=== PATIENT | female | born 1955 | race Hispanic/Latino ===

== ENCOUNTER 2018-07-11 01:17 | Observation (INO) | payer MEDICARE ==
[2018-07-11] MEDS ORDERED: ZOFRAN IV ONE (01:58)
[2018-07-11] MEDS ORDERED: NACL 0.9% 1000 ML 1,000 ML IV ONE ×2 (01:58→05:12)
[2018-07-11] MEDS ORDERED: DILAUDID IV ONE ×3 (01:58→05:12)
[2018-07-11] MEDS ORDERED: DILAUDID ONE (02:01)
[2018-07-11] MEDS ORDERED: ZOFRAN ONE (02:02)
[2018-07-11 02:27] LABS: Basophils # (Auto) 0.1 K/mm3 (0.0-0.1); Eosinophils # (Auto) 0.1 K/mm3 (0.0-0.4); Eosinophils % (Auto) 0.9 % (0.0-4.3); Hematocrit 39.9 % (30.3-42.9); Hemoglobin 13.6 gm/dl (10.1-14.3); Lymphocytes # (Auto) 2.7 K/mm3 (1.2-5.4); Lymphocytes % (Auto) 27.6 % (13.4-35.0); Mean Corpuscular HGB Conc 34 % (30-34); Mean Corpuscular Volume 98 fl (79-97); Monocytes # (Auto) 0.7 K/mm3 (0.0-0.8); Monocytes % (Auto) 7.2 % (0.0-7.3); Platelet Count 296 K/mm3 (140-440); Red Blood Count 4.07 M/mm3 (3.65-5.03); Red Cell Distribution Width 14.7 % (13.2-15.2)
[2018-07-11 02:45] LABS: Alanine Aminotransferase 5 units/L (7-56); Albumin 3.7 g/dL (3.9-5); BUN/Creatinine Ratio 20; Blood Urea Nitrogen 12 mg/dL (7-17); Calcium 8.9 mg/dL (8.4-10.2); Hemolysis Index 7
--- NOTE | 2018-07-11 02:50 | Emergency Department Report ---
ED Abdominal Pain HPI - General Chief Complaint: Abdominal Pain Stated Complaint: ABD PAIN Time Seen by Provider: 07/11/18 01:54 Source: patient, EMS Mode of arrival: Stretcher Limitations: No Limitations - History of Present Illness Initial Comments: 62-year-old female with a past medical history of asthma, COPD, cholecystectomy, chronic pain, and previous back surgery presents to the Hospital complains of left upper quadrant pain for the past 2-3 days. Pain is constant but fluctuates in intensity and is currently 10/10 in intensity. Rest of palpation. No relieving factors. She denies vomiting, fever, hematuria, or dysuria. + nausea and watery stools for the past 3 days. No melena or hematochezia reported. Severity scale (0 -10): 10 - Related Data Previous Rx's Medication Instructions Recorded Last Taken Type ALBUTEROL Inhaler (OR & NICU) 2 puff IH QID PRN #1 inhalation 11/24/17 Unknown Rx [ProAir HFA Inhaler] Prednisone [predniSONE 10 mg 10 mg PO .TAPER #1 tab.ds.pk 11/24/17 Unknown Rx (6-Day Pack, 21 Tabs)] guaiFENesin DM [Guaifenesin Dm 10 ml PO Q4H PRN 10 Days oral.liqd 11/24/17 Unknown Rx Syrup] levoFLOXacin [Levaquin TAB] 500 mg PO QDAY #5 tablet 11/24/17 Unknown Rx Allergies Allergy/AdvReac Type Severity Reaction Status Date / Time Penicillins Allergy Swelling Verified 11/22/17 04:54 ED Review of Systems ROS: Stated complaint: ABD PAIN Other details as noted in HPI Comment: All other systems reviewed and negative ED Past Medical Hx - Past Medical History Previous Medical History?: Yes Hx Congestive Heart Failure: No Hx Diabetes: No Hx Asthma: No Hx COPD: Yes Additional medical history: chronic back pain - Surgical History Past Surgical History?: Yes Hx Cholecystectomy: Yes Additional Surgical History: back surgery - Social History Smoking Status: Never Smoker Substance Use Type: None - Medications Home Medications: Home Medications Medication Instructions Recorded Confirmed Last Taken Type ALBUTEROL Inhaler (OR & NICU) 2 puff IH QID PRN #1 inhalation 11/24/17 Unknown Rx [ProAir HFA Inhaler] Prednisone [predniSONE 10 mg 10 mg PO .TAPER #1 tab.ds.pk 11/24/17 Unknown Rx (6-Day Pack, 21 Tabs)] guaiFENesin DM [Guaifenesin Dm 10 ml PO Q4H PRN 10 Days oral.liqd 11/24/17 Unknown Rx Syrup] levoFLOXacin [Levaquin TAB] 500 mg PO QDAY #5 tablet 11/24/17 Unknown Rx ED Physical Exam - General Limitations: No Limitations - Other Other exam information: General: Uncomfortable secondary to pain Head exam: Atraumatic, normocephalic Eyes exam: Normal appearance, nonicteric sclera ENT: Moist mucous membrane, normal oropharynx Neck exam: Normal inspection, full range of motion, no meningismus nontender Respiratory exam: Clear to auscultation bilateral, no wheezes, rales, crackles Cardiovascular: Normal rate and rhythm, normal heart sounds Abdomen: Soft, nondistended, left upper quadrant tenderness,with normal bowel sounds, no rebound, or guarding Extremity: Full range of motion normal inspection no deformity Back: Normal Inspection, full range of motion, no tenderness Neurologic: Alert, oriented x3, cranial nerves intact, no motor or sensory deficit Psychiatric: normal affect, normal mood Skin: Warm, dry, intact ED Course Vital Signs 07/11/18 07/11/18 07/11/18 01:27 01:32 01:46 Temperature 97.6 F Pulse Rate 75 Respiratory 20 20 Rate Blood Pressure 106/64 116/81 O2 Sat by Pulse 97 97 97 Oximetry 07/11/18 07/11/18 07/11/18 02:00 02:20 02:41 Temperature Pulse Rate Respiratory Rate Blood Pressure 116/81 113/79 98/63 O2 Sat by Pulse 97 96 93 Oximetry 07/11/18 07/11/18 07/11/18 03:00 03:38 03:41 Temperature Pulse Rate Respiratory Rate Blood Pressure 98/63 98/63 98/63 O2 Sat by Pulse 97 95 Oximetry 07/11/18 07/11/18 07/11/18 04:01 04:21 04:41 Temperature Pulse Rate Respiratory Rate Blood Pressure 109/65 109/65 97/50 O2 Sat by Pulse 94 93 92 Oximetry 07/11/18 05:00 Temperature Pulse Rate Respiratory Rate Blood Pressure 97/50 O2 Sat by Pulse 97 Oximetry - Consultations Consultation #1: 07/11/18 05:15 case d/w DR NEHA SEVERINO, will consult for endoscopy, request NPO ED Medical Decision Making - Lab Data Result diagrams: 07/11/18 02:13 07/11/18 02:13 Lab Results 07/11/18 07/11/18 07/11/18 Range/Units 02:13 02:13 03:11 WBC 9.9 (4.5-11.0) K/mm3 RBC 4.07 (3.65-5.03) M/mm3 Hgb 13.6 (10.1-14.3) gm/dl Hct 39.9 (30.3-42.9) % MCV 98 H (79-97) fl MCH 33 H (28-32) pg MCHC 34 (30-34) % RDW 14.7 (13.2-15.2) % Plt Count 296 (140-440) K/mm3 Lymph % (Auto) 27.6 (13.4-35.0) % [place] % (Auto) 7.2 (0.0-7.3) % Eos % (Auto) 0.9 (0.0-4.3) % Baso % (Auto) 1.0 (0.0-1.8) % Lymph # 2.7 (1.2-5.4) K/mm3 [place] # 0.7 (0.0-0.8) K/mm3 Eos # 0.1 (0.0-0.4) K/mm3 Baso # 0.1 (0.0-0.1) K/mm3 Seg Neutrophils % 63.3 (40.0-70.0) % Seg Neutrophils # 6.3 (1.8-7.7) K/mm3 Sodium 141 (137-145) mmol/L Potassium 3.8 (3.6-5.0) mmol/L Chloride 105.8 (98-107) mmol/L Carbon Dioxide 21 L (22-30) mmol/L Anion Gap 18 mmol/L BUN 12 (7-17) mg/dL Creatinine 0.6 L (0.7-1.2) mg/dL Estimated GFR > 60 ml/min BUN/Creatinine Ratio 20 % Glucose 104 H (65-100) mg/dL Calcium 8.9 (8.4-10.2) mg/dL Total Bilirubin 0.20 (0.1-1.2) mg/dL AST 12 (5-40) units/L ALT 5 L (7-56) units/L Alkaline Phosphatase 76 (35-129) units/L Total Protein 6.8 (6.3-8.2) g/dL Albumin 3.7 L (3.9-5) g/dL Albumin/Globulin Ratio 1.2 % Lipase 21 (13-60) units/L Urine Color Yellow (Yellow) Urine Turbidity Clear (Clear) Urine pH 5.0 (5.0-7.0) Ur Specific [place] 1.039 H (1.003-1.030) Urine Protein <15 mg/dl (Negative) mg/dL Urine Glucose (UA) Neg (Negative) mg/dL Urine Ketones Tr (Negative) mg/dL Urine Blood Sm (Negative) Urine Nitrite Neg (Negative) Urine Bilirubin Neg (Negative) Urine Urobilinogen 2.0 (<2.0) mg/dL Ur Leukocyte Esterase Neg (Negative) Urine WBC (Auto) 1.0 (0.0-6.0) /HPF Urine RBC (Auto) 15.0 (0.0-6.0) /HPF U Epithel Cells (Auto) 4.0 (0-13.0) /HPF Calcium Oxalate Crystal 1+ Urine Mucus 2+ /HPF - Radiology Data Radiology results: report reviewed PROCEDURE: CT ABDOMEN PELVIS W CON TECHNIQUE: CT imaging is obtained through the abdomen and pelvis following intravenous administration of contrast in arterial and delayed phases. HISTORY: LUQ abd pain COMPARISONS: 11/22/2017 FINDINGS: Partially visualized intrathoracic contents are remarkable for a small hiatal hernia. Cholecystectomy. The liver, pancreas, spleen, and adrenal glands are unremarkable. Kidneys show no worrisome lesions, hydronephrosis, or calculi. Urinary bladder is unremarkable. Anteverted uterus. No free fluid in the pelvis. Small and large bowel are normal in caliber. Appendix is normal. No free air, free fluid, or lymphadenopathy identified. Aorta is normal in course and caliber. Superficial soft tissues are unremarkable. No acute or aggressive appearing skeletal findings. Laminectomy, posterior discectomy and fusion at L4-L5 with mild anterolisthesis appears unchanged from prior. Hardware appears intact. IMPRESSION: No acute findings in the abdomen or pelvis. Small hiatal hernia. - Medical Decision Making Persistent left upper quadrant pain with CT only showing a small hiatal hernia. Microscopic hematuria and calcium oxalate crystals without finding of stone on CT. Patient continues to look uncomfortable with intermittent pain with the medication wears off. Case discussed with GI decision analyst with plan for endoscopy. Patient has not had anything by mouth since midnight. Nothing by mouth order place. PPI IV dose times one ordered. Hospitalist for informed for admission - Differential Diagnosis perforated ulcer, pancreatitis, diverticulitis, biliary colic, UTI Critical Care Time: No Critical care attestation.: If time is entered above; I have spent that time in minutes in the direct care of this critically ill patient, excluding procedure time. ED Disposition Clinical Impression: LUQ abdominal pain, Intractable abdominal pain, Diarrhea Disposition: OP ADMIT IP TO THIS HOSP Is pt being admited?: Yes Condition: Stable Time of Disposition: 05:17 (DR disla/hosp)
[2018-07-11 03:35] LABS: Bilirubin,Urine NEG (Negative); Blood,Urine SM (Negative); Calcium Oxalate Crystals,Urine 1+; Color,Urine Yellow (Yellow); Mucus,Urine 2+ /HPF; Protein,Urine <15 mg/dL mg/dL (Negative)
--- NOTE | 2018-07-11 04:54 | Cat Scan Report ---
PROCEDURE: CT ABDOMEN PELVIS W CON TECHNIQUE: CT imaging is obtained through the abdomen and pelvis following intravenous administratio n of contrast in arterial and delayed phases. HISTORY: LUQ abd pain COMPARISONS: 11/22/2017 FINDINGS: Partially visualized intrathoracic contents are remarkable for a small hiatal hernia. Cholecystectomy. The liver, pancreas, spleen, and adrenal glands are unremarkable. Kidneys show no worrisome lesions, hydronephrosis, or calculi. Urinary bladder is unremarkable. Antev erted uterus. No free fluid in the pelvis. Small and large bowel are normal in caliber. Appendix is normal. No free air, free fluid, or lymphade nopathy identified. Aorta is normal in course and caliber. Superficial soft tissues are unremarkable. No acute or aggressive appearing skeletal findings. Lázaro ctomy, posterior discectomy and fusion at L4-L5 with mild anterolisthesis appears unchanged from prio r. Hardware appears intact. IMPRESSION: No acute findings in the abdomen or pelvis. Small hiatal hernia. This document is electronically signed by Madi Gan MD., July 11 2018 04:52:09 AM ET
[2018-07-11] MEDS ORDERED: PROTONIX IV ONE (05:10)
[2018-07-11] MEDS ORDERED: TYLENOL PO PRN ×3 (05:25→06:03)
[2018-07-11] MEDS ORDERED: ZOFRAN IV PRN ×3 (05:25→06:03)
[2018-07-11] MEDS ORDERED: SODIUM CHLORIDE FLUSH SYRINGE 10 ML IV PRN (05:32)
--- NOTE | 2018-07-11 05:35 | History and Physical Report ---
History of Present Illness Date of examination: 07/11/18 Date of admission: 07/11/2018 Chief complaint: Abdomen or pain History of present illness: Patient is a 62-year-old female with a PMHx of COPD/asthma, hyperlipidemia, osteoarthritis, chronic pain, back surgery in March who presents today to ER with complaints of left upper quadrant abdominal pain 2-3 days. Pt states the pain is intermittent and associated with diarrhea, it is an intensity of 10/10 she, she reports some nausea, denied recent traveling, denies any vomiting, denies fever, denies chills. Patient states that she woke up in the middle of the night with severe abdominal pain which prompted her to come to the ER tonight, she states that she has an appointment to see a GI on Sunday next week. Patient had a CT scan of the abdomen in the ER which was negative, all laboratory test were negative including lipase, liver enzymes, WBC, GI is consulted for possible endoscopy in the morning, pt is admitted for further evaluation of her abdominal pain. Past History Past Medical History: hyperlipidemia Past Surgical History: cholecystectomy, Other (lower back surgery) Social history: alcohol abuse (junk alcohol occasionally) Family history: no significant family history Medications and Allergies Allergies Allergy/AdvReac Type Severity Reaction Status Date / Time Penicillins Allergy Swelling Verified 11/22/17 04:54 Home Medications Medication Instructions Recorded Confirmed Last Taken Type Escitalopram Oxalate [Lexapro] 20 mg PO DAILY 07/11/18 07/11/18 Unknown History Levothyroxine [Synthroid] 75 mcg PO QAM 07/11/18 07/11/18 Unknown History Active Meds: Active Medications Acetaminophen (Tylenol) 650 mg PO Q4H PRN PRN Reason: Pain MILD(1-3)/Fever >100.5/MYERS Famotidine (Pepcid) 20 mg IV BID RUPALI Sodium Chloride (Nacl 0.9% 1000 Ml) 1,000 mls @ 999 mls/hr IV BOLUS ONE Stop: 07/11/18 06:12 Last Admin: 07/11/18 05:32 Dose: 999 mls/hr Documented by: Dextrose/Sodium Chloride (D5/0.45ns) 1,000 mls @ 75 mls/hr IV DIRECT RUPALI Morphine Sulfate (Morphine) 2 mg IV Q4H PRN PRN Reason: Pain, Moderate (4-6) Ondansetron HCl (Zofran) 4 mg IV Q8H PRN PRN Reason: Nausea And Vomiting Sodium Chloride (Sodium Chloride Flush Syringe 10 Ml) 10 ml IV BID RUPALI Sodium Chloride (Sodium Chloride Flush Syringe 10 Ml) 10 ml IV PRN PRN PRN Reason: LINE FLUSH Review of Systems Gastrointestinal: abdominal pain, nausea, diarrhea Exam - Constitutional Vitals: Temp Pulse Resp BP Pulse Ox 97.6 F 75 20 97/50 97 07/11/18 01:27 07/11/18 01:27 07/11/18 01:32 07/11/18 05:00 07/11/18 05:00 General appearance: Present: no acute distress - EENT Eyes: Present: EOM intact ENT: hearing intact - Neck Neck: Present: normal ROM - Respiratory Respiratory effort: normal Respiratory: bilateral: CTA - Cardiovascular Rhythm: regular - Extremities Extremities: no ischemia Peripheral Pulses: within normal limits - Abdominal General gastrointestinal: Present: soft, tender Female genitourinary: Present: deferred - Rectal Rectal Exam: deferred - Integumentary Integumentary: Present: warm, dry - Musculoskeletal Musculoskeletal: strength equal bilaterally - Psychiatric Psychiatric: cooperative - Neurologic Neurologic: moves all extremities Results - Labs CBC & Chem 7: 07/11/18 02:13 07/11/18 02:13 Labs: Laboratory Last Values WBC 9.9 K/mm3 (4.5-11.0) 07/11/18 02:13 RBC 4.07 M/mm3 (3.65-5.03) 07/11/18 02:13 Hgb 13.6 gm/dl (10.1-14.3) 07/11/18 02:13 Hct 39.9 % (30.3-42.9) 07/11/18 02:13 MCV 98 fl (79-97) H 07/11/18 02:13 MCH 33 pg (28-32) H 07/11/18 02:13 MCHC 34 % (30-34) 07/11/18 02:13 RDW 14.7 % (13.2-15.2) 07/11/18 02:13 Plt Count 296 K/mm3 (140-440) 07/11/18 02:13 Lymph % (Auto) 27.6 % (13.4-35.0) 07/11/18 02:13 [place] % (Auto) 7.2 % (0.0-7.3) 07/11/18 02:13 Eos % (Auto) 0.9 % (0.0-4.3) 07/11/18 02:13 Baso % (Auto) 1.0 % (0.0-1.8) 07/11/18 02:13 Lymph # 2.7 K/mm3 (1.2-5.4) 07/11/18 02:13 [place] # 0.7 K/mm3 (0.0-0.8) 07/11/18 02:13 Eos # 0.1 K/mm3 (0.0-0.4) 07/11/18 02:13 Baso # 0.1 K/mm3 (0.0-0.1) 07/11/18 02:13 Seg Neutrophils % 63.3 % (40.0-70.0) 07/11/18 02:13 Seg Neutrophils # 6.3 K/mm3 (1.8-7.7) 07/11/18 02:13 Sodium 141 mmol/L (137-145) 07/11/18 02:13 Potassium 3.8 mmol/L (3.6-5.0) 07/11/18 02:13 Chloride 105.8 mmol/L (98-107) 07/11/18 02:13 Carbon Dioxide 21 mmol/L (22-30) L 07/11/18 02:13 Anion Gap 18 mmol/L 07/11/18 02:13 BUN 12 mg/dL (7-17) 07/11/18 02:13 Creatinine 0.6 mg/dL (0.7-1.2) L 07/11/18 02:13 Estimated GFR > 60 ml/min 07/11/18 02:13 BUN/Creatinine Ratio 20 % 07/11/18 02:13 Glucose 104 mg/dL (65-100) H 07/11/18 02:13 Calcium 8.9 mg/dL (8.4-10.2) 07/11/18 02:13 Total Bilirubin 0.20 mg/dL (0.1-1.2) 07/11/18 02:13 AST 12 units/L (5-40) 07/11/18 02:13 ALT 5 units/L (7-56) L 07/11/18 02:13 Alkaline Phosphatase 76 units/L (35-129) 07/11/18 02:13 Total Protein 6.8 g/dL (6.3-8.2) 07/11/18 02:13 Albumin 3.7 g/dL (3.9-5) L 07/11/18 02:13 Albumin/Globulin Ratio 1.2 % 07/11/18 02:13 Lipase 21 units/L (13-60) 07/11/18 02:13 Urine Color Yellow (Yellow) 07/11/18 03:11 Urine Turbidity Clear (Clear) 07/11/18 03:11 Urine pH 5.0 (5.0-7.0) 07/11/18 03:11 Ur Specific [place] 1.039 (1.003-1.030) H 07/11/18 03:11 Urine Protein <15 mg/dl mg/dL (Negative) 07/11/18 03:11 Urine Glucose (UA) Neg mg/dL (Negative) 07/11/18 03:11 Urine Ketones Tr mg/dL (Negative) 07/11/18 03:11 Urine Blood Sm (Negative) 07/11/18 03:11 Urine Nitrite Neg (Negative) 07/11/18 03:11 Urine Bilirubin Neg (Negative) 07/11/18 03:11 Urine Urobilinogen 2.0 mg/dL (<2.0) 07/11/18 03:11 Ur Leukocyte Esterase Neg (Negative) 07/11/18 03:11 Urine WBC (Auto) 1.0 /HPF (0.0-6.0) 07/11/18 03:11 Urine RBC (Auto) 15.0 /HPF (0.0-6.0) 07/11/18 03:11 U Epithel Cells (Auto) 4.0 /HPF (0-13.0) 07/11/18 03:11 Calcium Oxalate Crystal 1+ 07/11/18 03:11 Urine Mucus 2+ /HPF 07/11/18 03:11 Assessment and Plan Assessment and plan: 1. Acute abdominal pain (etiology unknown) 2. COPD asthma (stable) 3. Acute diarrhea 4. Hyperlipidemia 5. Osteoarthritis 6. Chronic back pain (s/p lower back surgery) Plan: Patient is placed in observation for abdominal pain Consult GI for observation Keep NPO until seen by GI Continue pain control with morphine PRN DC plan per GI in a.m. Plan of care was discussed with patient, voiced understanding Patient's condition and plan of care D/W with Dr. SO Advance Directives: Yes VTE prophylaxis?: Mechanical Plan of care discussed with patient/family: No
[2018-07-11] MEDS ORDERED: D5/0.45NS 1,000 ML IV SCH (06:00)
[2018-07-11] MEDS: MORPHINE IV PRN ×3 (06:35→20:01)
--- NOTE | 2018-07-11 08:30 | Gastroenterology Consultation ---
History of Present Illness - Reason for Consult Consult date: 07/11/18 abdominal pain Requesting physician: ADELFO JMAIL - History of Present Illness This is a 62 yo female with pmh of COPD/asthma, HLD, osteoarthritis, chronic pain, back surgery in 03/2019 presenting to the ED for LUQ abdominal pain since last weekend. She reports that the pain is severe intermittent. No association with eating or nausea/vomiting. She does have diarrhea during this time. No fever/chills. No change in medication other than vitamin D. In the ED, labs were unremarkable and CT abdomen did not show any cause for her pain. No prior EGD. No NSAID use. Past History Past Medical History: hyperlipidemia Past Surgical History: cholecystectomy, Other (lower back surgery) Social history: alcohol abuse (junk alcohol occasionally) Family history: no significant family history Medications and Allergies Allergies Allergy/AdvReac Type Severity Reaction Status Date / Time Penicillins Allergy Swelling Verified 11/22/17 04:54 Home Medications Medication Instructions Recorded Confirmed Last Taken Type Escitalopram Oxalate [Lexapro] 20 mg PO DAILY 07/11/18 07/11/18 Unknown History Levothyroxine [Synthroid] 75 mcg PO QAM 07/11/18 07/11/18 Unknown History Active Meds: Active Medications Acetaminophen (Tylenol) 650 mg PO Q4H PRN PRN Reason: Pain MILD(1-3)/Fever >100.5/MYERS Famotidine (Pepcid) 20 mg IV BID RUPALI Dextrose/Sodium Chloride (D5/0.45ns) 1,000 mls @ 75 mls/hr IV DIRECT RUPALI Morphine Sulfate (Morphine) 2 mg IV Q4H PRN PRN Reason: Pain, Moderate (4-6) Last Admin: 07/11/18 06:35 Dose: 2 mg Documented by: Ondansetron HCl (Zofran) 4 mg IV Q8H PRN PRN Reason: Nausea And Vomiting Sodium Chloride (Sodium Chloride Flush Syringe 10 Ml) 10 ml IV BID RUPALI Sodium Chloride (Sodium Chloride Flush Syringe 10 Ml) 10 ml IV PRN PRN PRN Reason: LINE FLUSH Review of Systems - Review of Systems All systems: negative Constitutional: no weight loss, no weight gain Cardiovascular: no chest pain, no shortness of breath Respiratory: cough Gastrointestinal: abdominal pain, diarrhea, no nausea, no vomiting, no BRBPR, no melena Musculoskeletal: joint pain, muscle pain Hematologic/Lymphatic: no easy bruising Allergic/Immunologic: no wheezing Exam - Constitutional Vital Signs: Temp Pulse Resp BP Pulse Ox 97.8 F 66 16 93/51 96 07/11/18 07:12 07/11/18 07:12 07/11/18 07:12 07/11/18 07:12 07/11/18 07:12 General appearance: no acute distress, well-nourished - EENT Eyes: PERRL ENT: hearing intact, clear oral mucosa, dentition normal - Neck Neck: supple, normal ROM, no masses or JVD - Respiratory Respiratory effort: normal Respiratory: bilateral: CTA - Breasts Breasts: deferred - Cardiovascular Rhythm: regular Heart Sounds: Present: S1 & S2. Absent: gallop, rub Extremities: pulses intact, No edema, normal color, Full ROM - Gastrointestinal General gastrointestinal: Present: soft, tender, non-distended, normal bowel sounds - Integumentary Integumentary: Present: clear, warm, dry - Neurologic Neurological: alert and oriented x3 - Psychiatric Psychiatric: appropriate mood/affect, intact judgment & insight, memory intact - Labs CBC & Chem 7: 07/11/18 02:13 07/11/18 02:13 Lab Results: Laboratory Results - last 24 hr 07/11/18 07/11/18 07/11/18 02:13 02:13 03:11 WBC 9.9 RBC 4.07 Hgb 13.6 Hct 39.9 MCV 98 H MCH 33 H MCHC 34 RDW 14.7 Plt Count 296 Lymph % (Auto) 27.6 [place] % (Auto) 7.2 Eos % (Auto) 0.9 Baso % (Auto) 1.0 Lymph # 2.7 [place] # 0.7 Eos # 0.1 Baso # 0.1 Seg Neutrophils % 63.3 Seg Neutrophils # 6.3 Sodium 141 Potassium 3.8 Chloride 105.8 Carbon Dioxide 21 L Anion Gap 18 BUN 12 Creatinine 0.6 L Estimated GFR > 60 BUN/Creatinine Ratio 20 Glucose 104 H Calcium 8.9 Total Bilirubin 0.20 AST 12 ALT 5 L Alkaline Phosphatase 76 Total Protein 6.8 Albumin 3.7 L Albumin/Globulin Ratio 1.2 Lipase 21 Urine Color Yellow Urine Turbidity Clear Urine pH 5.0 Ur Specific [place] 1.039 H Urine Protein <15 mg/dl Urine Glucose (UA) Neg Urine Ketones Tr Urine Blood Sm Urine Nitrite Neg Urine Bilirubin Neg Urine Urobilinogen 2.0 Ur Leukocyte Esterase Neg Urine WBC (Auto) 1.0 Urine RBC (Auto) 15.0 U Epithel Cells (Auto) 4.0 Calcium Oxalate Crystal 1+ Urine Mucus 2+ - Imaging CT Scan: report reviewed Assessment and Plan # LUQ abdominal pain - s/p cholecystectomy. - CT abdomen reviewed and unremarkable. - labs normal. lipase negative - ddx including PUD, viral illness, gastritis. Rec: - will plan for EGD today. - keep NPO - continue with PPI. - will follow. Reviewed and updated patient's current medications - Patient Problems (1) LUQ abdominal pain Current Visit: Yes Status: Acute
--- NOTE | 2018-07-11 09:15 | Event Note ---
Date: 07/11/18 1. Acute abdominal pain (etiology unknown) 2. COPD asthma (stable) 3. Acute diarrhea 4. Hyperlipidemia 5. Osteoarthritis 6. Chronic back pain (s/p lower back surgery) Evaluated by GI Patient underwent EGD Findings reviewed Patient continues to have abdominal pain Continue current management Possible discharge in 1-2 days if stable
[2018-07-11] MEDS: NACL 0.9% 1000 ML 1,000 ML IV SCH ×2 (09:33→11:43)
--- NOTE | 2018-07-11 09:49 | Anesthesia Day of Surgery ---
Anesthesia Day of Surgery - Day of Surgery Patient Examined: Yes Patient H&P Reviewed: Yes Patient is NPO: Yes
--- NOTE | 2018-07-11 09:52 | Anesthesia Consultation ---
Anesthesia Consult and Med Hx Date of service: 07/11/18 - Airway Anesthetic Teeth Evaluation: Good ROM Head & Neck: Adequate Mental/Hyoid Distance: Adequate Mallampati Class: Class II Intubation Access Assessment: Probably Good - Pre-Operative Health Status ASA Pre-Surgery Classification: ASA3 Proposed Anesthetic Plan: MAC - Pulmonary Hx Smoking: No Hx Asthma: Yes COPD: Yes Hx Pneumonia: No - Cardiovascular System Hx Coronary Artery Disease: Yes (high cholesterol) - Central Nervous System Hx Neuromuscular Disorder: Yes (osteoarthritis) Hx Back Pain: Yes (Back surgery) - Endocrine Hx End Stage Renal Disease: No - Other Systems Hx Alcohol Use: Yes
[2018-07-11] MEDS ORDERED: DIPRIVAN 10 MG/ML IV ONE (09:54)
[2018-07-11] MEDS ORDERED: SUBLIMAZE ONE (09:54)
[2018-07-11] MEDS ORDERED: VERSED ONE (09:54)
[2018-07-11] MEDS ORDERED: SODIUM CHLORIDE FLUSH SYRINGE 10 ML IV SCH ×2 (10:00)
--- NOTE | 2018-07-11 10:17 | Operative Report ---
Operative Report Operative Report: Date of procedure: 07/11/2018 Procedure: EGD with biopsies Preprocedure diagnosis: abdominal pain Post procedure diagnosis: antral gastritis, bile in the stomach, and duodenitis Endoscopist: Dr. Avilez Anesthesia: Monitored anesthesia care per anesthesia department Medications: per anesthesia records Estimated blood loss: minimal After careful discussion of the nature and purpose of the procedure as well as details the technique risks benefits and alternatives consent was obtained. The patient was placed in the left lateral decubitus position and medicated per anesthesia. The tip of the [employer] EQ 570 video scope was passed per orum under direct vision into the esophagus and advanced into the stomach and descending duodenum. The descending duodenum appeared normal. The duodenal bulb showed erythematous mucosa with edema. Biopsies were obtained. The scope was withdrawn into the stomach and the stomach then gently insufflated with air. The antrum showed mild erythematous mucosa. Biopsies were obtained. The stomach was further insufflated and the scope was then retroflexed and partially withdrawn. The cardia, fundus, and body of the stomach were within normal limits and easily distensible. Bile noted in the gastric body. The scope was then withdrawn in the forward position. The esophagogastric junction was at 40 cm. There was a small hiatal hernia. The esophageal body was normal throughout. The procedure was was well tolerated and the patient was observed in recovery. Impressions: 1. Mild duodenitis in the bulb. Bx obtained. 2. Mild antral gastritis. Bx obtained. 3. Bile noted in the stomach. 4. Otherwise, normal rest of the exam. Plan: 1. Resume diet. 2. Recommend PPI PO once daily. 3. Add sucralfate PO QID. 4. Ok for discharge per GI standpoint and follow up in outpatient clinic.
[2018-07-11] MEDS: CARAFATE PO SCH ×3 (11:39→23:00)
[2018-07-11] MEDS: PEPCID IV SCH ×2 (11:49→23:01)
[2018-07-11] MEDS: SODIUM CHLORIDE FLUSH SYRINGE 10 ML IV SCH ×2 (12:04→23:01)
[2018-07-11] MEDS ORDERED: ATIVAN ONE (13:51)
[2018-07-11] MEDS: PERCOCET 5/325 PO PRN ×2 (14:59→23:00)
[2018-07-11] MEDS: SODIUM CHLORIDE FLUSH SYRINGE 10 ML IV PRN (20:02)
[2018-07-12] MEDS: MORPHINE IV PRN ×2 (03:48→10:37)
[2018-07-12] MEDS: SODIUM CHLORIDE FLUSH SYRINGE 10 ML IV PRN (03:49)
[2018-07-12 06:02] VITALS: BP 112/57
[2018-07-12] MEDS: PERCOCET 5/325 PO PRN (06:22)
[2018-07-12] MEDS: NACL 0.9% 1000 ML 1,000 ML IV SCH (06:23)
[2018-07-12] MEDS: CARAFATE PO SCH (07:30)
[2018-07-12] MEDS ORDERED: PROTONIX PO SCH (10:00)
[2018-07-12] MEDS: PEPCID IV SCH (10:39)
--- NOTE | 2018-07-12 10:39 | Gastroenterology Progress Note ---
Assessment and Plan 1. # LUQ abdominal pain - s/p cholecystectomy. - CT abdomen reviewed and unremarkable. - labs normal. lipase negative - ddx including PUD, viral illness, gastritis. Impressions: 1. Mild duodenitis in the bulb. Bx obtained- path pending 2. Mild antral gastritis. Bx obtained- path pending. 3. Bile noted in the stomach. 4. Otherwise, normal rest of the exam. Plan: 1. Resume diet. 2. Recommend PPI PO once daily. 3. Add sucralfate PO QID. 4. Add Bentyl as needed for pain 4. Ok for discharge per GI standpoint and follow up in outpatient clinic. Subjective Date of service: 07/12/18 Interval history: Pt continues to report intermittent pain on the left side. Objective - Constitutional Vitals: Temp Pulse Resp BP Pulse Ox 98.0 F 61 20 112/57 96 07/12/18 04:29 07/12/18 04:29 07/12/18 06:22 07/12/18 04:29 07/12/18 04:29 General appearance: no acute distress - EENT Eyes: EOM intact ENT: hearing intact - Neck Neck: supple - Cardiovascular Rhythm: regular Heart Sounds: Present: S1 & S2 - Gastrointestinal General gastrointestinal: Present: soft, tender (TTP LUQ.), normal bowel sounds - Integumentary Integumentary: Present: warm, dry - Neurologic Neurological: alert and oriented x3 - Labs CBC & Chem 7: 07/11/18 02:13 07/11/18 02:13
[2018-07-12] MEDS: SODIUM CHLORIDE FLUSH SYRINGE 10 ML IV SCH (10:40)
[2018-07-12] MEDS ORDERED: BENTYL PO PRN (10:49)
--- NOTE | 2018-07-12 12:46 | Discharge Summary ---
Providers - Providers Date of Admission: 07/11/18 05:06 Date of discharge: 07/12/18 Attending physician: ALYSSA RUIZ 07/11/18 05:10 Consult to Physician [CONS] Urgent Comment: Dr. Heath spoke with Dr. Avilez @ 0513 Consulting Provider: JULIANNA AVILEZ Physician Instructions: Reason For Exam: luq pain Primary care physician: DAVID COREY MD Hospitalization Reason for admission: abdominal pain Condition: Stable Pertinent studies: CT abdomen and pelvis EGD Procedures: EGD Hospital course: 62yr old female patient with a history of COPD/asthma, hyperlipidemia, osteoarthritis, chronic pain, back surgery in March was admitted through ER with complaints of left upper quadrant abdominal pain 2-3 days. The patient was admitted symptomatically managed evaluated by GI and underwent EGD Revealed mild duodenitis and mild antral gastritis biopsied, advised PPI sucralfate However patient did not wait any longer for management and left the hospital AMA, Discharge diagnoses; Acute abdominal pain COPD exacerbation Acute diarrhea Dyslipidemia Osteoarthritis Chronic back pain Patient left AMA Disposition: LEFT AGAINST MED ADVICE Time spent for discharge: 31min Core Measure Documentation - Palliative Care Palliative Care/ Comfort Measures: Not Applicable - Core Measures Any of the following diagnoses?: none Exam - Physical Exam Narrative exam: Left AMA - Constitutional Vitals: Temp Pulse Resp BP Pulse Ox 98.0 F 61 20 112/57 96 07/12/18 04:29 07/12/18 04:29 07/12/18 06:22 07/12/18 04:29 07/12/18 04:29 Plan Follow up with: DAVID COREY MD [Primary Care Provider] - 7 Days
== END 2018-07-12 12:30 | disposition left against medical advice (07) ==
LOC: ED 01:17 → SUATTDRO 01:17 → INTOOBSV 05:06 → 3A 05:06
PROVIDERS: ADMIT Internal Medicine Geriatric Medicine; ATTEND Internal Medicine
DX: K29.60 Other gastritis without bleeding (principal); K29.80 Duodenitis without bleeding; J44.9 Chronic obstructive pulmonary disease, unspecified; R19.7 Diarrhea, unspecified; E78.5 Hyperlipidemia, unspecified; M19.90 Unspecified osteoarthritis, unspecified site; M54.9 Dorsalgia, unspecified; G89.29 Other chronic pain; Z90.49 Acquired absence of other specified parts of digestive tract; Z79.899 Other long term (current) drug therapy
CPT/HCPCS: 36415; 43239; 74177; 80053; 81001; 83690; 85025; 87116; 88305; 88342; 96361; 96374; 96375; 96376; 99284; C9113; G0378; J1170; J2250; J2270; J2405; J2704; J3010; J7030; Q9967; J2060